=== PATIENT | female | born 1955 | race Caucasian/White ===

== ENCOUNTER 2018-08-27 09:29 | Emergency (ER) | payer OTHER ==
[~2018-08-27] VITALS: Ht 167.6 cm; Wt 81.7 kg
== END 2018-08-27 11:29 | disposition home or self-care (01) ==
LOC: ER 09:29
DX: S50.812A Abrasion of left forearm, initial encounter (principal); M25.522 Pain in left elbow; M25.512 Pain in left shoulder; W10.9XXA Fall (on) (from) unspecified stairs and steps, initial encounter; E11.9 Type 2 diabetes mellitus without complications; F17.210 Nicotine dependence, cigarettes, uncomplicated
CPT/HCPCS: 73030; 73080; 90471; 90714; 99283-25

== ENCOUNTER 2019-02-15 07:00 | Day surgery (SDC) | payer OTHER ==
[2019-03-09] MEDS ORDERED: Zocor20 MG PO (16:11)
[2019-03-09] MEDS ORDERED: ENAL5 PO (16:11)
[2019-03-09] MEDS ORDERED: CONEST.625 PO (16:11)
[2019-03-09] MEDS ORDERED: PARO30 PO (16:12)
[2019-03-09] MEDS ORDERED: Amitriptyline100 MG PO (16:12)
[2019-03-09] MEDS ORDERED: Ambien10 MG PO (16:12)
[2019-03-09] MEDS ORDERED: MULTI-DAY PLUS1 EAC1 PO (16:13)
[2019-03-09] MEDS ORDERED: METF500 PO (16:13)
[2019-03-09] MEDS ORDERED: OMEPRAZOLE20 MG PO (16:13)
[2019-03-09] MEDS ORDERED: Naprosyn500 MG PO (16:14)
[2019-03-09] MEDS ORDERED: ACET500 PO (16:15)
[2019-03-09] MEDS ORDERED: VARE1 PO (16:16)
[2019-03-09] MEDS ORDERED: DRAMAMINE PO (16:16)
[2019-03-09] MEDS ORDERED: LATA.005SO BOTHEYES (16:16)
== END 2019-02-15 22:41 | disposition home or self-care (01) ==
LOC: MOI MAM 07:00
DX: C50.012 Malignant neoplasm of nipple and areola, left female breast (principal); Z17.0 Estrogen receptor positive status [ER+]
CPT/HCPCS: 19083; 77065; 88305; 88342; 88360; A4648

== ENCOUNTER → 2019-02-19 | Outpatient (CLI) | payer OTHER ==
[~2019-02-19] MED LIST: ACET500 PO; Ambien10 MG PO; Amitriptyline100 MG PO; CONEST.625 PO; DRAMAMINE PO; ENAL5 PO; LATA.005SO BOTHEYES; METF500 PO; MULTI-DAY PLUS1 EAC1 PO; Naprosyn500 MG PO; OMEPRAZOLE20 MG PO; PARO30 PO; VARE1 PO; Zocor20 MG PO
== END | disposition home or self-care (01) ==
LOC: LAB SHORT 12:05 → PLD 12:05
DX: C50.812 Malignant neoplasm of overlapping sites of left female breast (principal)
CPT/HCPCS: 88305

== ENCOUNTER 2019-03-12 10:28 | Day surgery (SDC) | payer OTHER ==
[~2019-03-12] VITALS: Ht 165.1 cm; Wt 86.4 kg
--- NOTE | 2019-03-12 11:16 | NUR ---
History, Chart, Medications and Allergies reviewed before start of procedure. Patient confirms NPO status and agrees with scheduled surgery. Patient States Post-Procedure ride home has been arranged with her mom.
--- NOTE | 2019-03-12 16:06 | NUR ---
Dressing to procedure site clean, dry, intact with no visible drainage, swelling, erythema or bruising noted. Dressing to procedure site clean, dry, intact with no visible drainage, swelling, erythema or bruising noted. Patient States Post-Procedure ride home has been arranged.
--- NOTE | 2019-03-12 16:07 | NUR ---
Discharged via wheelchair to private car for ride home.
== END 2019-03-12 16:05 | disposition home or self-care (01) ==
LOC: ORSCMMR 10:28 → ORD 12:00 → ORSCMMR 16:05
PROVIDERS: Surgery
PROC: 05HM33Z Insertion of Infusion Device into Right Internal Jugular Vein, Percutaneous Approach (ICD-10-PCS; principal; 2019-03-12 13:30)
PROC: B5131ZA Fluoroscopy of Right Jugular Veins using Low Osmolar Contrast, Guidance (ICD-10-PCS; principal; 2019-03-12 13:30)
DX: C50.812 Malignant neoplasm of overlapping sites of left female breast (principal); I10 Essential (primary) hypertension; E11.9 Type 2 diabetes mellitus without complications; J44.9 Chronic obstructive pulmonary disease, unspecified; Z87.891 Personal history of nicotine dependence; Z86.73 Personal history of transient ischemic attack (TIA), and cerebral infarction without residual deficits; E78.5 Hyperlipidemia, unspecified; Z79.899 Other long term (current) drug therapy
CPT/HCPCS: 77001; 82947; A9270-GY; C1788; J0690; J1100; J1642; J1885; J2250; J2405; J2704; J3010; J7120

== ENCOUNTER → 2019-09-30 | Outpatient (CLI) | payer OTHER ==
[~2019-09-30] MED LIST changes: +HYDROCODON-ACE1 EAC3 PO; +METO10 PO; +Norco 10-325 T1 EACH PO
== END ==
LOC: LAB 11:50 → LAB SHORT 11:50
DX: R39.15 Urgency of urination (principal)
CPT/HCPCS: 87077; 87086; 87186

== ENCOUNTER 2019-12-14 05:50 | Day surgery (SDC) | payer OTHER ==
[~2019-12-14] VITALS: Ht 165.1 cm; Wt 87.0 kg
[~2019-12-14 05:50] MED LIST changes: +ASPI81CH PO; +TOPROL XL25 MG PO
--- NOTE | 2019-12-14 07:58 | NUR ---
PT BACK TO RECOVERY ROOM VIA RECLINER POST PROCEDURE. DENIES PAIN OR DISCOMFORT. RIGHT RADIAL AND RIGHT AC ACCESS SITES CLEAN, DRY, AND INTACT. NO BLEEDING OR SWELLING AT EITHER SITE. VSS, CALL LIGHT IN REACH.
--- NOTE | 2019-12-14 08:35 | NUR ---
PT EATING BREAKFAST, VISITING WITH MOTHER. CALL LIGHT IN REACH, VSS. RIGHT RADIAL AND RIGHT AC ACCESS SITES REMAIN C/D/I.
--- NOTE | 2019-12-14 09:37 | NUR ---
DR SCOTT AT BEDSIDE DISCUSSING ANGIOGRAM RESULTS AND FOLLOW UP INFORMATION WITH PATIENT AND MOTHER.
[2019-12-14] MEDS ORDERED: SPIR25 PO (10:07)
[2019-12-14] MEDS ORDERED: TORSE20 PO (10:07)
--- NOTE | 2019-12-14 10:11 | NUR ---
ALL AIR HAS BEEN REMOVED FROM TR BAND ON RIGHT RADIAL ACCESS SITE. NO BLEEDING OR BRUISING NOTED. PT ABLE TO AMBULATE TO THE BATHROOM WITHOUT DIFFICULTY.
--- NOTE | 2019-12-14 10:34 | NUR ---
IV DC'D, CATH INTACT. PT GIVEN DC INSTRUCTIONS, FOLLOW UP INFORMATION, VERBALIZED UNDERSTANDING. WILL INPATIENT PHARMACIST NEW PRESCRIPTIONS TODAY AND BEGIN TAKING [place] AM PER DR SCOTT'S ORDERS. OUT TO CAR VIA WHEELCHAIR, IN NO DISTRESS.
[2019-12-15] MEDS ORDERED: GABA100 PO (15:30)
[2019-12-15] MEDS ORDERED: ANAS1 PO (15:32)
[2019-12-15] MEDS ORDERED: ZOCOR20 MG PO (15:33)
== END 2019-12-14 11:00 | disposition home or self-care (01) ==
LOC: MHTC 05:50
PROC: B206YZZ Plain Radiography of Right and Left Heart using Other Contrast (ICD-10-PCS; principal; 2019-12-14)
PROC: B201YZZ Plain Radiography of Multiple Coronary Arteries using Other Contrast (ICD-10-PCS; principal; 2019-12-14)
PROC: 4A023N8 Measurement of Cardiac Sampling and Pressure, Bilateral, Percutaneous Approach (ICD-10-PCS; principal; 2019-12-14)
DX: I44.7 Left bundle-branch block, unspecified (principal); I27.20 Pulmonary hypertension, unspecified; I42.9 Cardiomyopathy, unspecified; I34.0 Nonrheumatic mitral (valve) insufficiency; I11.9 Hypertensive heart disease without heart failure; E11.9 Type 2 diabetes mellitus without complications; E66.9 Obesity, unspecified; Z79.84 Long term (current) use of oral hypoglycemic drugs; Z79.899 Other long term (current) drug therapy; Z79.82 Long term (current) use of aspirin; Z87.891 Personal history of nicotine dependence; Z88.5 Allergy status to narcotic agent; E66.3 Overweight; Z68.32 Body mass index [BMI] 32.0-32.9, adult
CPT/HCPCS: 93460; 99152; 99153; C1769; C1894; J1644; J2250; J3010; J7030; Q9967

== ENCOUNTER 2020-02-02 11:15 | Emergency (ER) | payer OTHER ==
[~2020-02-02] VITALS: Ht 167.6 cm; Wt 84.4 kg
[~2020-02-02 11:15] MED LIST changes: +ALPR.5 PO; +AMIODARONE HCL400 MG PO; +ANAS1 PO; +ELIQUIS5 MG PO; +ENTRESTO 24 MG1 EACH PO; +GABA100 PO; +HYDACE10B PO; +NAPR500 PO; +Norco 5-325 Ta1 EACH PO; +PARO10 PO; +SPIR25 PO; +TORSE20 PO; +ZOCOR20 MG PO
[2020-02-02 11:52] LABS: BASOPHILS ABSOLUTE AUTO 0.03 K/mm3 (0.00-0.23); BASOPHILS PERCENT AUTO 0 % (0-2); EOSINOPHILS ABSOLUTE AUTO 0.04 K/mm3 (0.00-0.68); EOSINOPHILS PERCENT AUTO 0 % (0-6); Hematocrit 35.5 % (33.0-51.0); Hemoglobin 10.5 g/dL (11.5-16.0); IMMATURE GRAN ABSOLUTE AUTO 0.12 K/mm3 (0.00-0.10); IMMATURE GRAN PERCENT AUTO 1 % (0-1); LYMPHOCYTES ABSOLUTE AUTO 1.35 K/mm3 (0.84-5.20); LYMPHOCYTES PERCENT AUTO 14 % (21-46); MONOCYTES ABSOLUTE AUTO 0.43 K/mm3 (0.16-1.47); MONOCYTES PERCENT AUTO 5 % (4-13); Mean Corpuscular HGB 24.8 pg (26.0-34.0); Mean Corpuscular HGB Conc 29.6 g/dL (31.5-36.5); Mean Corpuscular Volume 84 fL (80-100); Mean Platelet Volume 9.7 fL (9.1-12.4); NEUTROPHILS ABSOLUTE AUTO 7.45 K/mm3 (1.96-9.15); NEUTROPHILS PERCENT AUTO 79 % (41-73); Platelet Count 249 K/mm3 (150-400); RDW Coefficient Variation 18.5 % (11.7-14.2); RDW Standard Deviation 56.3 fL (35.1-46.3); Red Blood Cell Count 4.23 M/mm3 (3.80-5.20); White Blood Cell Count 9.42 K/mm3 (4.00-11.30)
[2020-02-02 12:23] LABS: Alanine Aminotransfer (ALT/SGP 32 U/L (12-78); Albumin, Blood 3.7 g/dL (3.4-5.0); Albumin/Globulin Ratio 0.8 (0.8-1.8); Alk Phos 84 U/L (50-136); Anion Gap 10 mmol/L (6-16); Aspartate Aminotrans (AST/SGOT 25 U/L (12-37); Bilirubin, Total 0.4 mg/dL (0.1-1.0); Blood Urea Nitrogen 27 mg/dL (8-24); Bun/Creatinine Ratio 24.3 (12.0-20.0); CO2, Blood 25 mmol/L (21-32); Calcium, Blood 9.2 mg/dL (8.5-10.1); Chloride, Blood 99 mmol/L (98-108); Creatinine, Blood 1.11 mg/dL (0.40-1.00); Globulin, Blood 4.4 g/dL (2.2-4.0); Glomerular Filtration Rate 53 (60-); Glucose, Blood 130 mg/dL (70-99); Potassium, Blood 4.1 mmol/L (3.5-5.5); Sodium, Blood 134 mmol/L (136-145); Total Protein, Blood 8.1 g/dL (6.4-8.2); Troponin I <0.015 ng/mL (0.000-0.040)
[2020-02-02] MEDS ORDERED: ALBU90OI INH (12:39)
[2020-02-02] MEDS ORDERED: ANASTROZOLE5 GM PO (12:46)
[2020-02-02] MEDS ORDERED: DOBUTAMINE IV (12:52)
[2020-02-02] MEDS ORDERED: DOCU100 PO (12:52)
[2020-02-02] MEDS ORDERED: SENN187 PO (12:53)
[2020-02-02] MEDS ORDERED: MAGNESIUM OXID500 MG PO (12:54)
[2020-02-02] MEDS ORDERED: FURO80 PO (12:54)
[2020-02-02] MEDS ORDERED: OXYC5 PO (12:55)
[2020-02-02] MEDS ORDERED: POTCHL20ER PO (12:56)
== END 2020-02-02 13:04 | disposition home or self-care (01) ==
LOC: ER 11:15
PROVIDERS: Emergency Medicine
DX: I48.91 Unspecified atrial fibrillation (principal); Z88.5 Allergy status to narcotic agent; Z79.899 Other long term (current) drug therapy; Z79.84 Long term (current) use of oral hypoglycemic drugs; I10 Essential (primary) hypertension; E11.9 Type 2 diabetes mellitus without complications; K21.9 Gastro-esophageal reflux disease without esophagitis; F32.9 Major depressive disorder, single episode, unspecified; Z85.3 Personal history of malignant neoplasm of breast
CPT/HCPCS: 36415; 71045; 80053; 83880; 84484; 85025; 92960; 93005; 93010; 99152; 99285-25

== ENCOUNTER → 2020-02-10 | Outpatient (CLI) | payer OTHER ==
[~2020-02-10] MED LIST changes: +ALBU90OI INH; +ANASTROZOLE5 GM PO; +DOBUTAMINE IV; +DOCU100 PO; +FURO80 PO; +MAGNESIUM OXID500 MG PO; +OXYC5 PO; +POTCHL20ER PO; +SENN187 PO
[2020-02-10 15:41] LABS: International Normalized Ratio 1.04; Prothrombin Time Results 11.1 Sec (9.7-11.5)
== END ==
LOC: LAB HH 14:38
PROVIDERS: Internal Medicine Cardiovascular Disease
DX: Z79.01 Long term (current) use of anticoagulants (principal); Z51.81 Encounter for therapeutic drug level monitoring; I11.0 Hypertensive heart disease with heart failure; I50.43 Acute on chronic combined systolic (congestive) and diastolic (congestive) heart failure; I48.92 Unspecified atrial flutter
CPT/HCPCS: 85610

== ENCOUNTER → 2021-05-07 | Outpatient (CLI) | payer OTHER ==
[~2021-05-07] MED LIST changes: +ANASTROZOLE1 M6 PO; +Amiodarone HCl200 MG PO; +Amlodipine Bes2.5 MG PO; +FARXIGA10 MG PO; +WARF1 PO
== END | disposition home or self-care (01) ==
LOC: LAB SHORT 10:44
DX: A41.89 Other specified sepsis (principal)
CPT/HCPCS: 87070

== ENCOUNTER 2021-07-19 12:43 | Emergency (ER) | payer OTHER ==
[~2021-07-19] VITALS: Ht 167.6 cm; Wt 90.3 kg
[2021-07-19 13:57] LABS: BASOPHILS PERCENT AUTO 0 % (0-2); EOSINOPHILS ABSOLUTE AUTO 0.01 K/mm3 (0.00-0.68); EOSINOPHILS PERCENT AUTO 0 % (0-6); Hematocrit 37.3 % (33.0-51.0); Hemoglobin 11.5 g/dL (11.5-16.0); IMMATURE GRAN PERCENT AUTO 2 % (0-1); LYMPHOCYTES ABSOLUTE AUTO 0.47 K/mm3 (0.84-5.20); LYMPHOCYTES PERCENT AUTO 8 % (21-46); MONOCYTES ABSOLUTE AUTO 0.13 K/mm3 (0.16-1.47); MONOCYTES PERCENT AUTO 2 % (4-13); Mean Corpuscular HGB 25.2 pg (26.0-34.0); Mean Corpuscular HGB Conc 30.8 g/dL (31.5-36.5); Mean Corpuscular Volume 82 fL (80-100); NEUTROPHILS ABSOLUTE AUTO 5.47 K/mm3 (1.96-9.15); NEUTROPHILS PERCENT AUTO 89 % (41-73); Platelet Count 225 K/mm3 (150-400); RDW Coefficient Variation 18.1 % (11.7-14.2); RDW Standard Deviation 53.3 fL (35.1-46.3); Red Blood Cell Count 4.57 M/mm3 (3.80-5.20); White Blood Cell Count 6.18 K/mm3 (4.00-11.30)
[2021-07-19 14:19] LABS: PCO2 Arterial 32.3 mmHg (35-45); PO2 Arterial 63.4 mmHg (80-100); pH Blood Arterial 7.44 (7.35-7.45)
[2021-07-19 14:34] LABS: Alanine Aminotransfer (ALT/SGP 20 U/L (12-78); Albumin, Blood 3.5 g/dL (3.4-5.0); Albumin/Globulin Ratio 0.7 (0.8-1.8); Alk Phos 79 U/L (50-136); Anion Gap 11 mmol/L (6-16); Aspartate Aminotrans (AST/SGOT 31 U/L (12-37); Bilirubin, Direct 0.1 mg/dL (0.0-0.3); Bilirubin, Indirect 0.3 mg/dL (0.1-0.7); Bilirubin, Total 0.4 mg/dL (0.1-1.0); Blood Urea Nitrogen 26 mg/dL (8-24); CO2, Blood 22 mmol/L (21-32); Calcium, Blood 8.5 mg/dL (8.5-10.1); Chloride, Blood 100 mmol/L (98-108); Creatinine, Blood 1.13 mg/dL (0.40-1.00); Globulin, Blood 4.7 g/dL (2.2-4.0); Glomerular Filtration Rate 48 (60-); Glucose, Blood 159 mg/dL (70-99); Magnesium, Blood 1.9 mg/dL (1.6-2.4); Potassium, Blood 4.1 mmol/L (3.5-5.5); Sodium, Blood 133 mmol/L (136-145); Total Protein, Blood 8.2 g/dL (6.4-8.2); Troponin I <0.015 ng/mL (0.000-0.040)
== END 2021-07-19 16:46 | disposition short-term general hospital (02) ==
LOC: ER 12:43
PROVIDERS: Student in an Organized Health Care Education/Training Program
DX: U07.1 COVID-19 (principal); R09.02 Hypoxemia; Z88.5 Allergy status to narcotic agent; Z79.899 Other long term (current) drug therapy; Z79.82 Long term (current) use of aspirin; Z79.01 Long term (current) use of anticoagulants; E11.9 Type 2 diabetes mellitus without complications; Z85.3 Personal history of malignant neoplasm of breast; I48.91 Unspecified atrial fibrillation; I50.9 Heart failure, unspecified; F17.200 Nicotine dependence, unspecified, uncomplicated
CPT/HCPCS: 36415; 36600; 71045; 80048; 80076; 82803; 83690; 83735; 83880; 84145; 84484; 85025; 96374; 99285-25; J1100

== ENCOUNTER → 2021-08-13 | Outpatient (CLI) | payer OTHER ==
[2021-08-13 16:56] LABS: Hematocrit 32.3 % (33.0-51.0); Hemoglobin 9.9 g/dL (11.5-16.0); Mean Corpuscular HGB 25.4 pg (26.0-34.0); Mean Corpuscular HGB Conc 30.7 g/dL (31.5-36.5); Mean Corpuscular Volume 83 fL (80-100); Mean Platelet Volume 9.7 fL (9.1-12.4); NRBC ABSOLUTE 0.13 K/mm3 (0.00-0.02); NRBC Auto 0.6 /100 WBC (0.0-0.2); Platelet Count 450 K/mm3 (150-400); RDW Coefficient Variation 19.9 % (11.7-14.2); RDW Standard Deviation 55.3 fL (35.1-46.3); Red Blood Cell Count 3.89 M/mm3 (3.80-5.20); White Blood Cell Count 21.08 K/mm3 (4.00-11.30)
[2021-08-13 17:08] LABS: Albumin, Blood 2.7 g/dL (3.4-5.0); Albumin/Globulin Ratio 0.5 (0.8-1.8); Bilirubin, Direct 0.5 mg/dL (0.0-0.3); Bilirubin, Indirect 0.7 mg/dL (0.1-0.7); Bilirubin, Total 1.2 mg/dL (0.1-1.0); Bun/Creatinine Ratio 31.7 (12.0-20.0); Creatinine, Blood 1.61 mg/dL (0.40-1.00); Globulin, Blood 5.9 g/dL (2.2-4.0); Potassium, Blood 4.9 mmol/L (3.5-5.5); Total Protein, Blood 8.6 g/dL (6.4-8.2)
[2021-08-13 17:11] LABS: International Normalized Ratio 1.82; Prothrombin Time Results 18.4 Sec (9.7-11.5)
[2021-08-13 17:47] LABS: BAND PERCENT MAN 12 % (0-8); BASOPHILS PERCENT MAN 0 % (0-2); EOSINOPHILS PERCENT MAN 0 % (0-6); LYMPHOCYTES ABSOLUTE MAN 0.84 K/mm3 (0.84-5.20); LYMPHOCYTES PERCENT MAN 4 % (21-46); METAMYELOCYTE ABSOLUTE MAN 1.05 K/mm3 (0.00-0.00); METAMYELOCYTE PERCENT MAN 5 % (0-0); MONOCYTES ABSOLUTE MAN 0.63 K/mm3 (0.16-1.47); MONOCYTES PERCENT MAN 3 % (4-13); NEUTROPHILS ABSOLUTE MAN 17.49 K/mm3 (1.96-9.15); SEG NEUTROPHILS PERCENT MAN 71 % (41-73); TOTAL CELLS COUNTED 100
[2021-08-13 17:48] LABS: MYELOCYTE ABSOLUTE MAN 1.05 K/mm3 (0.00-0.00); MYELOCYTE PERCENT MAN 5 % (0-0)
== END ==
LOC: LAB HH 14:00 → LAB 14:00 → LAB SHORT 14:00
PROVIDERS: Internal Medicine
DX: R78.81 Bacteremia (principal); B95.61 Methicillin susceptible Staphylococcus aureus infection as the cause of diseases classified elsewhere
CPT/HCPCS: 80053; 82248; 85025; 85610

== ENCOUNTER 2021-08-15 13:12 | Emergency (ER) | payer OTHER ==
[~2021-08-15] VITALS: Ht 167.6 cm; Wt 82.1 kg
== END 2021-08-15 15:24 | disposition home or self-care (01) ==
LOC: ER 13:12
DX: N17.9 Acute kidney failure, unspecified (principal); E11.9 Type 2 diabetes mellitus without complications; I48.91 Unspecified atrial fibrillation; Z88.5 Allergy status to narcotic agent; Z79.899 Other long term (current) drug therapy; F17.200 Nicotine dependence, unspecified, uncomplicated
CPT/HCPCS: 71045; 99284-25; J0690

== ENCOUNTER 2022-01-23 10:02 | Emergency (ER) | payer OTHER ==
[~2022-01-23] VITALS: Ht 167.6 cm; Wt 88.0 kg
== END 2022-01-23 12:13 | disposition home or self-care (01) ==
LOC: ER 10:02
DX: S90.31XA Contusion of right foot, initial encounter (principal); E11.9 Type 2 diabetes mellitus without complications; I50.9 Heart failure, unspecified; Z79.84 Long term (current) use of oral hypoglycemic drugs; Z79.82 Long term (current) use of aspirin; Z79.01 Long term (current) use of anticoagulants; Z88.5 Allergy status to narcotic agent; W20.8XXA Other cause of strike by thrown, projected or falling object, initial encounter
CPT/HCPCS: 73630

== ENCOUNTER 2022-06-19 15:33 | Emergency (ER) | payer OTHER ==
[~2022-06-19] VITALS: Ht 167.6 cm; Wt 83.0 kg
[2022-06-19 16:53] LABS: BASOPHILS ABSOLUTE AUTO 0.03 K/mm3 (0.00-0.23); BASOPHILS PERCENT AUTO 1 % (0-2); EOSINOPHILS PERCENT AUTO 0 % (0-6); Hematocrit 36.8 % (33.0-51.0); Hemoglobin 11.2 g/dL (11.5-16.0); IMMATURE GRAN PERCENT AUTO 0 % (0-1); LYMPHOCYTES PERCENT AUTO 12 % (21-46); MONOCYTES ABSOLUTE AUTO 0.23 K/mm3 (0.16-1.47); MONOCYTES PERCENT AUTO 7 % (4-13); Mean Corpuscular HGB 27.7 pg (26.0-34.0); Mean Corpuscular HGB Conc 30.4 g/dL (31.5-36.5); Mean Corpuscular Volume 91 fL (80-100); Mean Platelet Volume 10.5 fL (9.1-12.4); NEUTROPHILS ABSOLUTE AUTO 2.67 K/mm3 (1.96-9.15); NEUTROPHILS PERCENT AUTO 80 % (41-73); Platelet Count 131 K/mm3 (150-400); RDW Coefficient Variation 20.8 % (11.7-14.2); RDW Standard Deviation 68.1 fL (35.1-46.3); Red Blood Cell Count 4.05 M/mm3 (3.80-5.20); White Blood Cell Count 3.33 K/mm3 (4.00-11.30)
[2022-06-19 17:17] LABS: Albumin, Blood 2.5 g/dL (3.4-5.0); Albumin/Globulin Ratio 0.5 (0.8-1.8); Bilirubin, Total 1.1 mg/dL (0.1-1.0); Bun/Creatinine Ratio 16.8 (12.0-20.0); Calcium, Blood 10.9 mg/dL (8.5-10.1); Creatinine, Blood 1.31 mg/dL (0.40-1.00); Globulin, Blood 5.3 g/dL (2.2-4.0); Potassium, Blood 4.4 mmol/L (3.5-5.5); Total Protein, Blood 7.8 g/dL (6.4-8.2)
[2022-06-19 20:10] LABS: Source, Urine Clean Catch
[2022-06-19 20:17] LABS: Appearance, Urine Cloudy (Clear); Blood, Urine 1+ (Neg); Color, Urine Yellow (P-Yellow); Glucose Qualitative, Urine 2+ (Neg); Ketones, Urine 1+ (Neg); Leukocyte Esterase, Urine 2+ (Neg); Nitrite, Urine Pos (Neg); Protein, Urine 2+ (Neg); Specific Gravity, Urine 1.025 (1.003-1.022); Urobilinogen, Urine 2+ (Normal)
[2022-06-19 20:36] LABS: Bilirubin, Urine 1+ (Neg)
[2022-06-19 20:38] LABS: Bacteria Many /hpf; Calcium Oxalate Crystals Few /hpf; Squamous Epithelial Cells Few /hpf (Few)
[2022-06-19] MEDS ORDERED: CEPH500 PO (21:05)
== END 2022-06-19 21:45 | disposition home or self-care (01) ==
LOC: ER 15:33
PROVIDERS: Physician Assistant
DX: N39.0 Urinary tract infection, site not specified (principal); R41.0 Disorientation, unspecified; E72.20 Disorder of urea cycle metabolism, unspecified; E11.9 Type 2 diabetes mellitus without complications; I11.0 Hypertensive heart disease with heart failure; I50.9 Heart failure, unspecified; K21.9 Gastro-esophageal reflux disease without esophagitis; Z79.84 Long term (current) use of oral hypoglycemic drugs; Z79.899 Other long term (current) drug therapy; Z79.01 Long term (current) use of anticoagulants; Z79.82 Long term (current) use of aspirin; Z88.5 Allergy status to narcotic agent; Z87.891 Personal history of nicotine dependence
CPT/HCPCS: 36415; 70450; 80053; 81001; 82140; 85025; J0696; J7030

== ENCOUNTER 2022-06-23 12:53 | Emergency (ER) | payer OTHER ==
[~2022-06-23] VITALS: Ht 167.6 cm; Wt 83.9 kg
[~2022-06-23 12:53] MED LIST changes: +CEPH500 PO
[2022-06-23 13:53] LABS: BASOPHILS ABSOLUTE AUTO 0.01 K/mm3 (0.00-0.23); BASOPHILS PERCENT AUTO 0 % (0-2); EOSINOPHILS PERCENT AUTO 0 % (0-6); Hematocrit 42.9 % (33.0-51.0); Hemoglobin 13.4 g/dL (11.5-16.0); IMMATURE GRAN ABSOLUTE AUTO 0.02 K/mm3 (0.00-0.10); IMMATURE GRAN PERCENT AUTO 1 % (0-1); LYMPHOCYTES ABSOLUTE AUTO 0.43 K/mm3 (0.84-5.20); LYMPHOCYTES PERCENT AUTO 11 % (21-46); MONOCYTES ABSOLUTE AUTO 0.36 K/mm3 (0.16-1.47); MONOCYTES PERCENT AUTO 10 % (4-13); Mean Corpuscular HGB 27.5 pg (26.0-34.0); Mean Corpuscular HGB Conc 31.2 g/dL (31.5-36.5); Mean Corpuscular Volume 88 fL (80-100); Mean Platelet Volume 10.7 fL (9.1-12.4); NEUTROPHILS ABSOLUTE AUTO 2.95 K/mm3 (1.96-9.15); NEUTROPHILS PERCENT AUTO 78 % (41-73); Platelet Count 148 K/mm3 (150-400); RDW Coefficient Variation 21.2 % (11.7-14.2); RDW Standard Deviation 67.3 fL (35.1-46.3); Red Blood Cell Count 4.88 M/mm3 (3.80-5.20); White Blood Cell Count 3.77 K/mm3 (4.00-11.30)
[2022-06-23 14:10] LABS: Albumin, Blood 2.6 g/dL (3.4-5.0); Albumin/Globulin Ratio 0.5 (0.8-1.8); Bilirubin, Total 1.4 mg/dL (0.1-1.0); Bun/Creatinine Ratio 19.6 (12.0-20.0); Calcium, Blood 12.3 mg/dL (8.5-10.1); Creatinine, Blood 1.12 mg/dL (0.40-1.00); Globulin, Blood 5.7 g/dL (2.2-4.0); Potassium, Blood 4.6 mmol/L (3.5-5.5); Total Protein, Blood 8.3 g/dL (6.4-8.2)
[2022-06-23 14:35] LABS: Source, Urine Clean Catch
[2022-06-23 14:50] LABS: Blood, Urine 1+ (Neg); Color, Urine Amber (P-Yellow); Glucose Qualitative, Urine 4+ (Neg); Ketones, Urine 1+ (Neg); Leukocyte Esterase, Urine 1+ (Neg); Nitrite, Urine Pos (Neg); Protein, Urine 2+ (Neg); Specific Gravity, Urine 1.025 (1.003-1.022); Urobilinogen, Urine 2+ (Normal)
[2022-06-23 15:18] LABS: Bilirubin, Urine 1+ (Neg)
[2022-06-23 15:19] LABS: Appearance, Urine Clear (Clear); Bacteria Few /hpf; Squamous Epithelial Cells Few /hpf (Few)
[2022-06-23 15:20] LABS: Calcium Oxalate Crystals Few /hpf
[2022-06-23] MEDS ORDERED: FASLODEX250 MG/5 M (16:42)
[2022-06-23] MEDS ORDERED: LOSA25 PO (16:42)
[2022-06-23] MEDS ORDERED: ENOX40I SC (16:42)
[2022-06-23] MEDS ORDERED: THERA-D2000 UNIT PO (16:43)
[2022-06-23] MEDS ORDERED: IBRANCE75 MG PO (16:44)
== END 2022-06-23 19:22 | disposition short-term general hospital (02) ==
LOC: ER 12:53
PROVIDERS: Student in an Organized Health Care Education/Training Program
DX: N39.0 Urinary tract infection, site not specified (principal); G93.40 Encephalopathy, unspecified; I11.0 Hypertensive heart disease with heart failure; I50.9 Heart failure, unspecified; E11.9 Type 2 diabetes mellitus without complications; I48.91 Unspecified atrial fibrillation; E78.5 Hyperlipidemia, unspecified; K21.9 Gastro-esophageal reflux disease without esophagitis; Z88.5 Allergy status to narcotic agent; Z79.899 Other long term (current) drug therapy; Z79.84 Long term (current) use of oral hypoglycemic drugs; Z87.891 Personal history of nicotine dependence
CPT/HCPCS: 36415; 70450; 71045; 80053; 81001; 82140; 84484; 85025; 87086; 93005; 93010; 96374; 99285-25; A9270; J0696; J7030